=== PATIENT | male | born 1965 | race Caucasian/White ===

== ENCOUNTER 2021-11-29 11:40 | Emergency (ER) | payer BC ==
[~2021-11-29] VITALS: Ht 177.8 cm; Wt 77.1 kg
--- NOTE | 2021-11-29 12:07 | ED Respiratory ---
General Chief Complaint: COVID19 Suspect/Confirmed Stated Complaint: SOB Nursing Triage Note: PATIENT C/O SOB FOR ABOUT ONE WEEK, WAS TESTED FOR COVID LAST SUNDAY A WEEK AGO AND RESULT WAS NEGITIVE. VERBALIZES WAS AT THE CLINIC YESTERDAY FOR SHORTNESS OF BREATH, STATES THEY DID A CHEST XRAY AND WORKUP BUT DIDNT FIND ANY REASON FOR HIS SOB WITH ACTIVITY. Source: patient Exam Limitations: no limitations History of Present Illness Date Seen by Provider: Nov 29, 2021 Time Seen by Provider: 12:02 Initial Comments Patient is a 56-year-old male who presents ED with shortness of breath over the past 2 weeks. Patient states he got tested for COVID 1 week ago which tested negative. He states he went to the clinic yesterday had a chest x-ray that was unremarkable. He is continue to feel short of breath with ambulation. He states his oxygen level was in the 80s with ambulation. On arrival 88% was placed on 2 L. No history of COPD, CHF, coronary artery disease, PE, DVT. Patient denies of any cough, fever, nausea, vomiting, diarrhea, abdominal pain or chest pain. Denies taking medication at home. He states symptoms feel very similar to when he had COVID a few years ago. Denies of any leg swelling. Not currently on any blood thinners. Allergies and Home Medications Allergies Coded Allergies: No Known Drug Allergies (Unverified , 11/29/21) Patient Home Medication List Home Medication List Reviewed: Yes Albuterol Sulfate (Proair Hfa) 1 Puff Puff, 2 PUFF IH Q4H Prescribed by: ANDREY ANDRE on 11/29/21 1444 Amoxicillin/Potassium Clav (Amox Tr-K Clv 875-125 mg Tab) 875 Mg-125 Mg Tablet, 1 EACH PO BID Prescribed by: ANDREY ANDRE on 11/29/21 1444 Azithromycin (Azithromycin) 250 Mg Tablet, 250 MG PO UD Prescribed by: ANDREY ANDRE on 11/29/21 144 Prednisone (Prednisone) 50 Mg Tab, 50 MG PO DAILY Prescribed by: ANDREY ANDRE on 11/29/21 1444 Review of Systems Review of Systems Constitutional: No chills, No diaphoresis, No malaise, No weakness EENTM: No blurred vision, No double vision Respiratory: No cough; short of breath Cardiovascular: No chest pain Gastrointestinal: No abdominal pain, No diarrhea, No nausea, No vomiting Genitourinary: No decreased output, No discharge Musculoskeletal: No back pain, No joint pain Skin: No change in color, No change in hair/nails All Other Systems Reviewed Negative Unless Noted: Yes Physical Exam Vital Signs - First Documented 11/29/21 11:50 Temp 36.8 Pulse 110 Resp 20 B/P (MAP) 172/101 (124) Pulse Ox 96 O2 Delivery Nasal Cannula O2 Flow Rate 2.00 Capillary Refill : Less Than 3 Seconds Height: '" Weight: lbs. oz. kg; 24.00 BMI Method: General Appearance: WD/WN, no apparent distress Eyes: Bilateral Eye Normal Inspection, Bilateral Eye PERRL, Bilateral Eye EOMI HEENT: PERRL/EOMI, normal ENT inspection, TMs normal, pharynx normal Neck: non-tender, full range of motion, supple Respiratory: chest non-tender, decreased breath sounds Cardiovascular: regular rate, rhythm, no edema, no gallop, no JVD Gastrointestinal: normal bowel sounds, non tender, soft, no organomegaly Extremities: normal range of motion, non-tender, normal inspection, no pedal edema, no calf tenderness Neurologic/Psychiatric: collection administrator II-XII nml as tested, no motor/sensory deficits, alert, normal mood/affect, oriented x 3 Skin: normal color, warm/dry Progress/Results/Core Measures Suspected Sepsis SIRS Temperature: Pulse: 110 Respiratory Rate: 20 Laboratory Tests 11/29/21 12:05: White Blood Count 4.7 Blood Pressure 172 /101 Mean: 124 Laboratory Tests 11/29/21 12:05: Creatinine 0.84, INR Comment 1.0, Platelet Count 296, Total Bilirubin 0.6 Results/Orders Lab Results Laboratory Tests Test 11/29/21 11:54 11/29/21 12:05 Range/Units Influenza Type A (RT-PCR) Not Detected Not Detecte Influenza Type B (RT-PCR) Not Detected Not Detecte SARS-CoV-2 RNA (RT-PCR) Not Detected Not Detecte White Blood Count 4.7 4.3-11.0 10^3/uL Red Blood Count 5.19 4.30-5.52 10^6/uL Hemoglobin 15.0 13.3-17.7 g/dL Hematocrit 44 40-54 % Mean Corpuscular Volume 85 80-99 fL Mean Corpuscular Hemoglobin 29 25-34 pg Mean Corpuscular Hemoglobin Concent 34 32-36 g/dL Red Cell Distribution Width 11.9 10.0-14.5 % Platelet Count 296 130-400 10^3/uL Mean Platelet Volume 9.1 9.0-12.2 fL Immature Granulocyte % (Auto) 1 % Neutrophils (%) (Auto) 71 42-75 % Lymphocytes (%) (Auto) 15 12-44 % Monocytes (%) (Auto) 9 0-12 % Eosinophils (%) (Auto) 3 0-10 % Basophils (%) (Auto) 1 0-10 % Neutrophils # (Auto) 3.3 1.8-7.8 10^3/uL Lymphocytes # (Auto) 0.7 L 1.0-4.0 10^3/uL Monocytes # (Auto) 0.4 0.0-1.0 10^3/uL Eosinophils # (Auto) 0.2 0.0-0.3 10^3/uL Basophils # (Auto) 0.0 0.0-0.1 10^3/uL Immature Granulocyte # (Auto) 0.0 0.0-0.1 10^3/uL Prothrombin Time 13.7 12.2-14.7 SEC INR Comment 1.0 0.8-1.4 Activated Partial Thromboplast Time 39 H 24-35 SEC D-Dimer 1.12 H 0.00-0.49 UG/ML Sodium Level 139 135-145 MMOL/L Potassium Level 4.2 3.6-5.0 MMOL/L Chloride Level 102 98-107 MMOL/L Carbon Dioxide Level 23 21-32 MMOL/L Anion Gap 14 5-14 MMOL/L Blood Urea Nitrogen 9 7-18 MG/DL Creatinine 0.84 0.60-1.30 MG/DL Estimat Glomerular Filtration Rate 102 BUN/Creatinine Ratio 11 Glucose Level 116 H 70-105 MG/DL Calcium Level 9.5 8.5-10.1 MG/DL Corrected Calcium 9.6 8.5-10.1 MG/DL Magnesium Level 2.0 1.6-2.4 MG/DL Total Bilirubin 0.6 0.1-1.0 MG/DL Aspartate Amino Transf (AST/SGOT) 179 H 5-34 U/L Alanine Aminotransferase (ALT/SGPT) 105 H 0-55 U/L Alkaline Phosphatase 75 40-136 U/L Myoglobin 27.5 10.0-92.0 NG/ML Troponin I < 0.028 <0.028 NG/ML B-Type Natriuretic Peptide < 10.0 <100.0 PG/ML Total Protein 7.7 6.4-8.2 GM/DL Albumin 3.9 3.2-4.5 GM/DL My Orders Orders - JEFFREY HERRING Cbc With Automated Diff (11/29/21 12:00) Magnesium (11/29/21 12:00) Ekg Tracing (11/29/21 12:00) Comprehensive Metabolic Panel (11/29/21 12:00) Myoglobin Serum (11/29/21 12:00) Protime With Inr (11/29/21 12:00) Partial Thromboplastin Time (11/29/21 12:00) O2 (11/29/21 12:00) Ed Iv/Invasive Line Start (11/29/21 12:00) Bnp Robert (11/29/21 12:00) Fibrin Degradation Products (11/29/21 12:00) Troponin I [place] (11/29/21 12:00) Covid 19 Inhouse Test (11/29/21 12:00) Influenza A And B By Pcr (11/29/21 12:00) Dexamethasone Injection (Decadron Inje (11/30/21 09:00) Albuterol/Ipra Inhalation Soln (Duoneb I (11/29/21 12:15) Svn Small Volume Nebulizer (11/29/21 12:13) Ct Angio Chest W (11/29/21 12:39) Iohexol Injection (Omnipaque 350 Mg/Ml 1 (11/29/21 13:00) Received Contrast (Hold Metformin- Contr (11/29/21 13:00) Ns (Ivpb) (Sodium Chloride 0.9% Ivpb Bag (11/29/21 13:00) Dexamethasone Injection (Decadron Inje (11/29/21 12:55) Medications Given in ED Current Medications Medications Dose Ordered Sig/Tommy Route Start Time Stop Time Status Last Admin Dose Admin Albuterol/ Ipratropium 3 ml ONCE ONCE INH 11/29/21 12:15 11/29/21 12:17 DC 11/29/21 13:11 3 ML Vital Signs/I&O 11/29/21 11/29/21 11/29/21 11/29/21 11:50 11:50 12:05 13:11 Temp 36.8 Pulse 110 Resp 20 B/P (MAP) 172/101 (124) Pulse Ox 96 96 97 O2 Delivery Nasal Cannula Nasal Cannula Nasal Cannula Nasal Cannula O2 Flow Rate 2.00 2.00 2.00 2.00 2.00 11/29/21 15:01 Temp 36.4 Pulse 96 Resp 20 B/P (MAP) 120/82 Pulse Ox 96 O2 Delivery Nasal Cannula O2 Flow Rate 2.00 2.00 Capillary Refill : Less Than 3 Seconds Blood Pressure Mean: 124 ECG Comment Sinus rhythm, 93 bpm, QRS duration 86 MS, QTc 389 MS Departure Communication (PCP) Patient is a 56-year-old male otherwise healthy with a history of COVID who presents to ED with shortness of breath. Patient states this occurs with ambulation. Denies of any leg swelling. Patient on arrival oxygen level 88%. Patient Was placed on 2 L. Previous smoker 14 years ago. Denies CHF, COPD or coronary artery disease. EKG without evidence of ST elevation or depression. Patient cardiac work-up unremarkable. Normal white blood count. Recent negative COVID swab one week ago. COVID and influenza was negative. He was slightly tachycardic. Concerning for hypoxia and must rule out PE. CT angio of the chest shows extensive 5 lobe groundglass opacities throughout both lungs consistent with chronic interstitial lung disease. Superimposed pneumonitis not able to rule out. Scattered alveolar infiltrates. No evidence of aneurysm, dissection or pulmonary embolism. Nonspecific mediastinal lymphadenopathy. Spiculated density left upper lobe measuring 12 mm x 13 mm. Patient refused blood cultures and lactic acid. Did give Decadron and DuoNeb breathing treatment initially as I was concerned for potential COVID. Strongly recommend admission secondary to the hypoxia and today's results. Refused admission. Walking oxygen level 84%. Resting oxygen 90%. Discussed with patient my concern for his vital signs at this time. This may increase stress on his heart potentially resulting in cardiac and worsening respiratory failure. Patient acknowledges. Patient was requesting to go home. Discussed my concerns with patient that he would benefit with admission for oxygen, IV antibiotics and further evaluation of the patient's symptoms and results. Patient states he felt fine to go home. Did want to get patient oxygen. Patient refused to wear oxygen. Discussed my concerns that this may lead to potential . Patient acknowledges. Patient states he will follow-up with [facility]. Due to the potential superimposed infection and symptoms patient will be discharged with Augmentin and azithromycin for any underlying pneumonia. Short burst steroids and an inhaler. Impression Primary Impression: Hypoxia Additional Impressions: Lesion of lung Interstitial lung disease Disposition: AGAINST MEDICAL ADVICE Condition: Unchanged Departure-Patient Inst. Decision time for Depature: 14:42 Referrals: [facility] (PCP/Family) Primary Care Physician Patient Instructions: Interstitial Lung Disease Scripts Azithromycin (Azithromycin) 250 Mg Tablet 250 MG PO UD, #6 TAB TAKE 2 TABLETS ON DAY ONE THEN TAKE 1 TABLET DAILY FOR FOUR MORE DAYS Prov: JEFFREY HERRING 11/29/21 Amoxicillin/Potassium Clav (Amox Tr-K Clv 875-125 mg Tab) 875 Mg-125 Mg Tablet 1 EACH PO BID for 7 Days, #14 TAB Prov: JEFFREY HERRING 11/29/21 Albuterol Sulfate (PROAIR HFA) 1 Puff Puff 2 PUFF IH Q4H, #1 EA 1 PUFF = 90 MCG Prov: JEFFREY HERRING 11/29/21 Prednisone (Prednisone) 50 Mg Tab 50 MG PO DAILY for 5 Days, #5 TAB Prov: JEFFREY HERRING 11/29/21 Work/School Note: Work Release Form Date Seen in the Emergency Department: Nov 29, 2021 Return to Work: Dec 07, 2021 JEFFREY HERRING Nov 29, 2021 12:07
[2021-11-29] MEDS ORDERED: RT-ALBUTEROL/IPRATROPIUM 3 ML (DUONEB) VIAL INH ONE (12:15)
[2021-11-29 12:18] LABS: BASOPHILS % (AUTO) 1 % (0-10); EOSINOPHILS # (AUTO) 0.2 10^3/uL (0.0-0.3); EOSINOPHILS % (AUTO) 3 % (0-10); HEMATOCRIT 44 % (40-54); LYMPHOCYTES # (AUTO) 0.7 10^3/uL (1.0-4.0); LYMPHOCYTES % (AUTO) 15 % (12-44); MEAN CORPUSCULAR HEMOGLOBIN 29 pg (25-34); MEAN CORPUSCULAR HGB CONC 34 g/dL (32-36); MEAN CORPUSCULAR VOLUME 85 fL (80-99); MEAN PLATELET VOLUME 9.1 fL (9.0-12.2); MONOCYTES # (AUTO) 0.4 10^3/uL (0.0-1.0); MONOCYTES % (AUTO) 9 % (0-12); NEUTROPHILS # (AUTO) 3.3 10^3/uL (1.8-7.8); NEUTROPHILS % (AUTO) 71 % (42-75); PLATELET COUNT 296 10^3/uL (130-400); WHITE BLOOD COUNT 4.7 10^3/uL (4.3-11.0)
[2021-11-29 12:28] LABS: ALBUMIN 3.9 GM/DL (3.2-4.5); POTASSIUM 4.2 MMOL/L (3.6-5.0); PROTHROMBIN TIME PATIENT 13.7 SEC (12.2-14.7)
[2021-11-29 12:29] LABS: CALCIUM 9.5 MG/DL (8.5-10.1)
[2021-11-29 12:31] LABS: TOTAL PROTEIN 7.7 GM/DL (6.4-8.2)
[2021-11-29 12:33] LABS: BILIRUBIN,TOTAL 0.6 MG/DL (0.1-1.0)
[2021-11-29 12:34] LABS: CREATININE SERUM 0.84 MG/DL (0.60-1.30)
[2021-11-29] MEDS ORDERED: NS 100 ML (IVPB) BAG IV ONE (13:00)
[2021-11-29] MEDS ORDERED: HOLD METFORMIN - RECEIVED CONTRAST 20 ML VIAL IV SCH (13:00)
[2021-11-29] MEDS ORDERED: IOHEXOL 350 MG/ML 100 ML (OMNIPAQUE 350) VIAL IV ONE (13:00)
--- NOTE | 2021-11-29 14:15 | Diagnostic Imaging Report ---
PROCEDURE: CT angiography of the chest with contrast. TECHNIQUE: Multiple contiguous axial images were obtained through the chest after uneventful bolus administration of intravenous contrast. 3D reconstructed CTA MIP acquisitions were also performed. Auto Exposure Controls were utilized during the CT exam to meet ALARA standards for radiation dose reduction. INDICATION: One-week history of shortness of breath, chest pain, suspected pulmonary embolism. Comparisons: None FINDINGS: There are a few shotty benign-appearing axillary nodes but no evidence of axillary adenopathy. There are a few nonspecific hilar or mediastinal nodes with some hilar fullness. Cardiac contour is normal. Few coronary calcifications are seen. Lungs show extensive 5 lobe interstitial pattern with groundglass opacities. Few scattered alveolar infiltrates are present. There is some paraseptal and centrilobular bullous emphysematous changes. A focal scarlike density with some spiculation is seen in the left upper lobe measuring 12 mm x 13 mm. There is no effusion or pneumothorax. Limited assessment of the abdomen shows senescent changes but no overall gross abnormalities. There is uniform attenuation with the liver, spleen. Pancreas, adrenals, and visualized kidneys are also grossly unremarkable with age-appropriate changes. The visualized aorta shows normal caliber with normal origin of the visceral arteries. IMPRESSION: 1. Extensive 5 lobe groundglass opacities throughout both lungs consistent with chronic interstitial lung disease. Superimposed pneumonitis versus atelectasis is not excluded. There are also a few scattered alveolar infiltrates. 2. No CT angiographic evidence for aortic aneurysm, dissection or pulmonary embolism. 3. Some nonspecific mediastinal lymphadenopathy is most likely reactive in nature. 4. Spiculated density in the left upper lobe measuring 12 mm x 13 mm. Short-term follow-up in one to 2 months is recommended. Perhaps a PET scan may be of further value. This may also be amenable to image guided biopsy. The risk of a pneumothorax is however high given the patient's underlying lung condition. Dictated by: Dictated on workstation # [id number]
[2021-11-29] MEDS ORDERED: AZIT250T12 PO (14:44)
[2021-11-29] MEDS ORDERED: RT-ALBUINH IH (14:44)
[2021-11-29] MEDS ORDERED: AMOX1TAB12 PO (14:44)
[2021-11-29] MEDS ORDERED: PRD50T PO (14:44)
[2021-11-29 15:01] VITALS: BP 120/82
== END 2021-11-29 15:01 | disposition left against medical advice (07) ==
LOC: ER 11:44
DX: J84.9 Interstitial pulmonary disease, unspecified (principal); R91.1 Solitary pulmonary nodule; R09.02 Hypoxemia; R00.0 Tachycardia, unspecified; Z87.891 Personal history of nicotine dependence; Z20.822 Contact with and (suspected) exposure to COVID-19
CPT/HCPCS: 36415; 71275; 80053; 83735; 83874; 83880; 84484; 85025; 85379; 85610; 85730; 87636; 93005; 94640